=== PATIENT | female | born 1995 | race Caucasian/White ===

== ENCOUNTER 2017-04-30 06:58 | Emergency (ER) | payer OTHER, MEDICAID, SELFPAY ==
[2017-04-30 06:58] VITALS: BP 152/94; PULSE 80; RESP 16; TEMP 36.2; O2SAT 97; BMI 29.9
--- NOTE | 2017-04-30 07:25 | ED.DCSUM_ITS ---
- ER Visit Summary Date of Service: 04/30/17 Chief Complaint: [Abdominal pain] History of Present Illness: The patient is a 22 F [who presents the emergency department with abdominal pain. Started yesterday at 1 PM. Bilateral upper quadrant and epigastric. Sharp aching pain. She rates it as severe. She has had 2-3 episodes of nausea and vomiting. No diarrhea. No fevers or chills. She has no medical problems and no primary physician at this time. Urination has been normal. Last menstrual cycle was April 19. She has had a C- section in the past no other abdominal surgeries. She did drink alcohol Sunday night drinks socially. She denies tobacco use.] Physical Examination: [] WN WD NAD PERRL EOMI MMM NECK supple and nontender, no masses RRR no murmur rub or gallop, no peripheral edema, symmetric radial pulses CTAB no respiratory distress ABDOMEN is soft with mild tenderness bilateral upper quadrant worse and epigastric and left upper quadrant, normal bowel sounds, no distension, no rebound or guarding SKIN is warm and dry no rashes Alert and Oriented x3, CN II-XII in tact, no motor or sensory deficits, gait normal No lymphadenopathy Test Results: [] Emergency Department Course and Treatment: [Screening labs were unremarkable. was negative. Patient was given Phenergan and fluids. She did feel somewhat better however when she opened her eyes she got nauseated again. She is not having any vertiginous symptoms. She was given Zofran. Her symptoms resolved. She was able to tolerate p.o. On reexamination she had some mild left lower quadrant tenderness but very little abdominal pain at all. At this time I think she safely can be discharged on a short course of antacid and antiemetic. Her parents and her were given careful precautions for which to return. They will follow-up with their physician.] Treatment Plan: [] Disposition: [Discharge] Impression: [1. Abdominal pain 2. Gastritis] This note was generated with [employer] dictation software. It may contain incorrect words, spelling, and punctuation that were not noted in review of the chart prior to signing ED Disposition - Plan for ED Patient: Chief Complaint: Abd Pain Referrals: Care Physician,No Primary [Primary Care Provider] -
[2017-04-30] MEDS: 0.9% Normal Saline 1,000 ML 1000 ML IV (07:38)
[2017-04-30] MEDS: Ketorolac 30 MG/ML Syringe IV (07:38)
[2017-04-30 07:54] LABS: Mucous, Urine 0 SEEN /hpf (<or=2+)
[2017-04-30 07:56] LABS: Internal QC Validated? YES +Cl - CLEAR BKGD; Pregnancy, Urine Negative Negative
[2017-04-30 07:58] LABS: Absolute Lymphocyte Count 1.14 X10^3/ul (0.83-4.51); Absolute Neutrophil Count 8.9 X10^3/uL (2.0-7.7); Basophil# 0.03 X10^3/uL; Basophil% 0.3 % (0-1); Eosinophil# 0.03 X10^3/uL; Eosinophils% 0.3 % (0-5); Hematocrit 44.7 % (37-47); Hemoglobin 14.6 g/dl (12.0-15.0); Lymphocyte # 1.14 X10^3/ul (4.0); Lymphocyte % 10.8 % (19-41); Mean Corp Hgb Conc 32.7 g/gl (32-36); Mean Corpuscular Hgb 27.2 pg (27.0-32.0); Mean Corpuscular Volume 83.2 fL (81-99); Mean Platelet Vol. 10.8 fl (6.2-12.0); Monocyte# 0.44 X10^3/uL; Monocyte% 4.2 % (0-10); Neutrophil # 8.93 X10^3/uL (2.7-7.7); Neutrophil % 84.3 % (47-70); Platelet Count 362 K/mm3 (150-450); RBC Distribution Width CV 14.2 % (11.6-14.6); RBC Distribution Width SD 42.9 fl (35.1-43.9); Red Blood Count 5.37 M/mm3 (4.2-5.4); White Blood Count 10.6 K/mm3 (4.4-11.0)
[2017-04-30 08:03] LABS: POSITIVE COUNT NO; POSITIVE DIFFERENTIAL NO; POSITIVE MORPHOLOGY NO
[2017-04-30 08:09] LABS: Color, Urine Yellow (Yellow); Glucose, Dipstick Normal (Normal); Ketone-Dipstick Negative (Negative); Leukocyte Esterase-Dipstick 25 /ul (Negative); Nitrite-Dipstick Negative (Negative); Occult Blood-Urine 10 /ul (Negative); Protein-Dipstick Negative (Negative); Urine Bilirubin Dipstick Negative (Negative); Urine Clarity Sl. Cloudy (Clear); Urine Urobilinogen Normal (Normal)
[2017-04-30 08:11] LABS: ALB/GLOB Ratio 0.8 RATIO (0.9-2.4); AST(SGOT) 12 U/L (15-37); Alanine Aminotransfer ALT/SGPT 16 U/L (13-56); Albumin, Serum 3.6 g/dL (3.2-5.0); Alkaline Phosphatase 96 U/L (45-117); Anion Gap 7 (5-15); BUN 17 mg/dL (7-18); BUN/Creat Ratio 21.4 RATIO (10-20); Calcium,Total 8.8 mg/dL (8.5-10.1); Chloride 105 mmol/L (98-107); Creatinine, Serum 0.79 mg/dL (0.55-1.02); EST Glomerular Filtration Rate 97 mL/min (>60); Est Glom Filt Rate - Afr Amer 118 mL/min (>60); Estimated Creatinine Clearance 101.36 ml/min; Globulin 4.4 g/dL (2.2-4.2); Glucose 135 mg/dL (74-106); Lipase 98 U/L (73-393); Potassium 3.9 mmol/L (3.5-5.1); Sodium Level 137 mmol/L (136-145)
[2017-04-30 08:32] LABS: White Blood Cells 0-5 SEEN /hpf (0-5)
[2017-04-30 08:33] LABS: Bacteria RARE /hpf (None Seen); Red Blood Cells-Urine 0-5 SEEN /hpf (0-5); Squamous Epithelial Cells - UA 0-5 SEEN /hpf (5-10)
[2017-04-30] MEDS: Ondansetron 4 MG/2 ML Vial IV (08:53)
--- NOTE | 2017-04-30 09:52 | ED.DEP ---
ED Disposition - Plan for ED Patient: Chief Complaint: Abd Pain Instructions: ED Abdominal Pain Unkn Cause, ED Gastritis Prescriptions: Ondansetron [Zofran Odt] 4 mg PO Q8H PRN PRN #10 tablet PRN Reason: Nausea Omeprazole [Prilosec] 20 mg PO DAILY #7 capsule Referrals: Christina Mg MD [STAFF PHYSICIAN] - 3-5 Days
== END 2017-04-30 10:51 | disposition home or self-care (01) ==
LOC: ED 07:28
PROVIDERS: Emergency Provider Emergency Medicine
DX: K29.70 Gastritis, unspecified, without bleeding (principal)
CPT/HCPCS: 80053; 81001; 81025; 83690; 85025; 96361; 96374; 96375; 99283; J7030; A4216; J2405

== ENCOUNTER → 2018-07-11 13:52 | Outpatient (CLI) | payer MEDICAID, SELFPAY ==
[2018-07-17 12:06] LABS: Clam <0.10 kU/L (Class 0); Codfish <0.10 kU/L (Class 0); Corn <0.10 kU/L (Class 0); Egg, White <0.10 kU/L (Class 0); Milk (Cow) <0.10 kU/L (Class 0); Peanut <0.10 kU/L (Class 0); SCALLOP <0.10 kU/L (Class 0); Shrimp <0.10 kU/L (Class 0); Soybean <0.10 kU/L (Class 0); Walnut, (Food) <0.10 kU/L (Class 0); Wheat <0.10 kU/L (Class 0)
[2018-07-17 14:31] LABS: SESAME SEED <0.10 kU/L (Class 0)
[2018-07-19 06:07] LABS: Alternaria tenuis <0.10 kU/L (Class 0); Ash, White <0.10 kU/L (Class 0); Aspergillus fumigatus <0.10 kU/L (Class 0); Bermuda Grass <0.10 kU/L (Class 0); Birch <0.10 kU/L (Class 0); Black Walnut <0.10 kU/L (Class 0); Cat Hair / Dander,Stand <0.10 kU/L (Class 0); Cedar, Mountain <0.10 kU/L (Class 0); Cladosporium herbarum <0.10 kU/L (Class 0); Cockroach, American <0.10 kU/L (Class 0); Cottonwood <0.10 kU/L (Class 0); D farinae Mite <0.10 kU/L (Class 0); D pteronyssinus <0.10 kU/L (Class 0); Dog Epithelia <0.10 kU/L (Class 0); Elm, American White <0.10 kU/L (Class 0); Immunoglobulin E 32 IU/mL (6-495); Maple/Box Elder <0.10 kU/L (Class 0); Mulberry, White <0.10 kU/L (Class 0); Oak, White <0.10 kU/L (Class 0); Pecan <0.10 kU/L (Class 0); Penicillium Notatum <0.10 kU/L (Class 0); Pigweed, Rough <0.10 kU/L (Class 0); Ragweed, Short/Common <0.10 kU/L (Class 0); Russian Thistle <0.10 kU/L (Class 0); Sheep Sorrel <0.10 kU/L (Class 0); Sycamore, American <0.10 kU/L (Class 0); Timothy Grass <0.10 kU/L (Class 0)
[2018-07-19 13:15] LABS: Mouse Urine <0.10 kU/L (Class 0)
== END ==
PROVIDERS: Referring Provider Otolaryngology; Visit Provider Otolaryngology
DX: T78.40XA Allergy, unspecified, initial encounter (principal)
CPT/HCPCS: 36415; 82785; 86003

== ENCOUNTER 2024-08-10 17:38 | Emergency (ER) | payer BC, SELFPAY ==
[2024-08-10 17:39] VITALS: BP 147/83; PULSE 53; RESP 15; TEMP 37; O2SAT 100; BMI 26.4
--- NOTE | 2024-08-10 17:57 | EX.ED.DYSGE1 ---
HPI <INÉS Garland - Last Filed: 08/10/24 21:15> History of Present Illness Chief Complaint: Nausea/Vomiting/Diarrhea Narrative Narrative: Patient presenting today due to nausea and vomiting that started this morning. She reports that she went to bed yesterday and drank 5 wine coolers and smoked marijuana. She additionally reports several episodes of loose today, however, this is not abnormal for her after having her gallbladder removed. She reports burning epigastric pain with vomiting as well as pain in the back of her throat. She denies fevers, chills, hematemesis, blood in the stool, and urinary symptoms. She denies frequent marijuana or alcohol use. [facility] <INÉS Garland - Last Filed: 08/10/24 21:15> [facility] Medical History Laryngitis Acute pharyngitis, unspecified delivery delivered Home Medications ?Medication ?Instructions ?Recorded ?Last Taken ?Type aspirin 81 mg tablet,delayed 81 mg PO DAILY 12/12/21 Unknown History release (Adult Low Dose Aspirin) cephalexin 500 mg capsule 500 mg PO TID 5 days #15 caps 08/10/24 Unknown Rx escitalopram oxalate 20 mg tablet 20 mg PO DAILY 08/10/24 Unknown History ondansetron 4 mg disintegrating 4 mg PO Q8H PRN PRN Nausea #10 tabs 08/10/24 Unknown Rx tablet pantoprazole 20 mg tablet,delayed 20 mg PO DAILY 08/10/24 Unknown History release Allergy/AdvReac Type Severity Reaction Status Date / Time No Known Allergies Allergy Verified 08/10/24 17:39 Social History Smoking Status: Never smoker ROS <INÉS Garland - Last Filed: 08/10/24 21:15> ROS ED Constitutional Constitutional ED: Denies chills or fever(s) Cardiovascular Cardiovascular: Denies chest pain Respiratory/Chest Respiratory/Chest: Denies dyspnea Gastrointestinal Gastrointestinal: Reports abdominal pain, diarrhea, nausea and vomiting; Denies constipation or melena Genitourinary Genitourinary ED: Denies dysuria, hematuria or urinary urgency Integumentary Denies rash Neurologic Neurologic: Denies weakness EXAM <INÉS Garland - Last Filed: 08/10/24 21:15> Physical Exam Const Vital Signs: 08/10/24 17:39 08/10/24 19:39 08/10/24 20:53 Temperature 98.6 F 99 F 98.4 F Temperature Source Oral Oral Oral Pulse Rate 53 L 54 L 46 L Respiratory Rate 15 16 16 Blood Pressure 147/83 H 132/85 H 134/77 H Blood Pressure Mean 104 100 96 Pulse Ox 100 99 99 Oxygen Delivery Method Room Air Room Air Room Air 08/10/24 22:30 Temperature 98.1 F Temperature Source Pulse Rate 55 L Respiratory Rate 16 Blood Pressure 100/69 Blood Pressure Mean 79 Pulse Ox 95 Oxygen Delivery Method Positive well nourished, well developed and no apparent distress General Appearance ED: well developed HEENT Reports normocephalic and head/scalp atraumatic Mouth ED: Yes moist mucous membranes normal Eyes PERRL and EOMs intact bilaterally Neck full ROM and supple Chest Wall inspection of chest normal Resp normal respiratory effort and clear to auscultation bilaterally Cardio regular rate and regular rhythm GI soft to palpation, non-tender, non-distended and no masses Back/Spine normal ROM and normal to inspection Extremity normal to inspection and full ROM Neuro moves all extremities, no focal motor deficits and no sensory deficits noted Sensorium / Orientation: awake and alert Psych mental status grossly normal and thought process normal Skin no rashes or lesions noted and no wounds <Dr. Aaron Keyes DO - Last Filed: 08/10/24 22:46> Physical Exam Const Vital Signs: 08/10/24 17:39 08/10/24 19:39 08/10/24 20:53 Temperature 98.6 F 99 F 98.4 F Temperature Source Oral Oral Oral Pulse Rate 53 L 54 L 46 L Respiratory Rate 15 16 16 Blood Pressure 147/83 H 132/85 H 134/77 H Blood Pressure Mean 104 100 96 Pulse Ox 100 99 99 Oxygen Delivery Method Room Air Room Air Room Air 08/10/24 22:30 Temperature 98.1 F Temperature Source Pulse Rate 55 L Respiratory Rate 16 Blood Pressure 100/69 Blood Pressure Mean 79 Pulse Ox 95 Oxygen Delivery Method MDM <Zara Lomeli PA - Last Filed: 08/10/24 21:15> [facility] MDM Narrative Medical decision making narrative: Patient presenting today with nausea and vomiting that started this morning. She had several alcoholic beverages as well as marijuana yesterday and while tubing. She woke up this morning feeling this way. She reports burning epigastric pain with vomiting, otherwise denies having significant abdominal pain., Pepcid, her abdomen is soft and nontender, given she has a nonsurgical abdomen I do not feel abdominal imaging at this time is indicated. Patient given IV fluids, pepcid, and Zofran. On reexamination she was still nauseous and was given Phenergan. She continued to have vomiting and did admits that she does use marijuana multiple times throughout the week. Initially she told me she rarely uses this substance, I think there might be an element of cannabis hyperemesis syndrome here. She was given IV Thorazine and Benadryl and she will be reassessed. Labs obtained, CBC shows a WBC of 20.4, this is likely reactive to her vomiting, her CMP and lipase are unremarkable. UA does show urine ketones with 3+ bacteria and 5-10 WBCs, negative leukocytes, negative nitrites. She has no CVA tenderness, I do not feel that this is pyelonephritis. This will be cultured and we will treat her with antibiotics. Lab Data Attestation: I reviewed the patient's lab results. Labs: Laboratory Results - last 24 hr 08/10/24 08/10/24 18:25 19:50 WBC 20.4 H RBC 4.64 Hgb 13.9 Hct 40.4 MCV 87.1 MCH 30.0 MCHC 34.4 RDW Std Deviation 40.7 RDW Coeff of Mallorie 13.0 Plt Count 378 MPV 10.3 Immature Gran % (Auto) 0.700 Neut % (Auto) 86.1 H Lymph % (Auto) 5.8 L [place] % (Auto) 7.2 Eos % (Auto) 0.0 Baso % (Auto) 0.2 Absolute Neuts (auto) 17.6 H Absolute Lymphs (auto) 1.18 Nucleated RBC % 0 Sodium 139 Potassium 3.3 Chloride 101 Carbon Dioxide 21.6 Anion Gap 16 H BUN 8 Creatinine 0.83 Estim Creat Clear Calc 100.43 Est GFR (MDRD) Non-Af 98 BUN/Creatinine Ratio 10.0 Glucose 107 H Calcium 9.5 Total Bilirubin 0.56 AST 18 ALT 10 Alkaline Phosphatase 61 Total Protein 7.2 Albumin 4.3 Globulin 2.9 Albumin/Globulin Ratio 1.5 Lipase 17 Serum , Qual NEGATIVE Urine Color Yellow Urine Clarity Clear Urine pH 6.0 Ur Specific [place] 1.020 Urine Protein 30 H Urine Glucose (UA) Normal Urine Ketones 150 A* Urine Occult Blood 10 H Urine Nitrite Negative Urine Bilirubin 1 H Urine Urobilinogen 1 H Ur Leukocyte Esterase Negative Urine RBC 0 SEEN Urine WBC 5-10 SEEN Ur Squamous Epith Cells 0-5 SEEN Urine Bacteria 3+ Urine Mucus 4+ <Dr. Aaron Keyes, DO - Last Filed: 08/10/24 22:46> [facility] MDM Narrative Medical decision making narrative: Patient presenting today with nausea and vomiting that started this morning. She had several alcoholic beverages as well as marijuana yesterday and while tubing. She woke up this morning feeling this way. She reports burning epigastric pain with vomiting, otherwise denies having significant abdominal pain., Pepcid, her abdomen is soft and nontender, given she has a nonsurgical abdomen I do not feel abdominal imaging at this time is indicated. Patient given IV fluids, pepcid, and Zofran. On reexamination she was still nauseous and was given Phenergan. She continued to have vomiting and did admits that she does use marijuana multiple times throughout the week. Initially she told me she rarely uses this substance, I think there might be an element of cannabis hyperemesis syndrome here. She was given IV Thorazine and Benadryl and she will be reassessed. Labs obtained, CBC shows a WBC of 20.4, this is likely reactive to her vomiting, her CMP and lipase are unremarkable. UA does show urine ketones with 3+ bacteria and 5-10 WBCs, negative leukocytes, negative nitrites. She has no CVA tenderness, I do not feel that this is pyelonephritis. This will be cultured and we will treat her with antibiotics. Supervisory Physician Note Patient was seen and examined with the Advanced Practice Provider. Nursing notes and vital signs have been reviewed. Pertinent old records have been reviewed. I agree with the essential elements of the LAURA's history, physical exam, assessment, and plan. The differential diagnosis and management options were discussed with the LAURA. I participated in determining and agree with the management, procedures, final impression and disposition as documented. See changes noted by me. Please see addendum or separate note for any additional details. On reassessment after patient was given Thorazine and Benadryl, her nausea significantly improved. She was able to rest. Given that this treatment helped the patient, there is likely an element of cannabis hyperemesis syndrome. Patient updated of this. Patient stable to discharge home and she is comfortable with this. She was educated to take it easy next several days and stay on a bland diet. Follow-up with PCP. She was given prescription for Zofran as well as Keflex. She confirmed understanding of the plan. Impression: 1. Nausea, vomiting, diarrhea 2. UTI 3. Suspect component of cannabis hyperemesis syndrome Lab Data Labs: Laboratory Results - last 24 hr 08/10/24 08/10/24 18:25 19:50 WBC 20.4 H RBC 4.64 Hgb 13.9 Hct 40.4 MCV 87.1 MCH 30.0 MCHC 34.4 RDW Std Deviation 40.7 RDW Coeff of Mallorie 13.0 Plt Count 378 MPV 10.3 Immature Gran % (Auto) 0.700 Neut % (Auto) 86.1 H Lymph % (Auto) 5.8 L [place] % (Auto) 7.2 Eos % (Auto) 0.0 Baso % (Auto) 0.2 Absolute Neuts (auto) 17.6 H Absolute Lymphs (auto) 1.18 Nucleated RBC % 0 Sodium 139 Potassium 3.3 Chloride 101 Carbon Dioxide 21.6 Anion Gap 16 H BUN 8 Creatinine 0.83 Estim Creat Clear Calc 100.43 Est GFR (MDRD) Non-Af 98 BUN/Creatinine Ratio 10.0 Glucose 107 H Calcium 9.5 Total Bilirubin 0.56 AST 18 ALT 10 Alkaline Phosphatase 61 Total Protein 7.2 Albumin 4.3 Globulin 2.9 Albumin/Globulin Ratio 1.5 Lipase 17 Serum , Qual NEGATIVE Urine Color Yellow Urine Clarity Clear Urine pH 6.0 Ur Specific [place] 1.020 Urine Protein 30 H Urine Glucose (UA) Normal Urine Ketones 150 A* Urine Occult Blood 10 H Urine Nitrite Negative Urine Bilirubin 1 H Urine Urobilinogen 1 H Ur Leukocyte Esterase Negative Urine RBC 0 SEEN Urine WBC 5-10 SEEN Ur Squamous Epith Cells 0-5 SEEN Urine Bacteria 3+ Urine Mucus 4+ Discharge Plan Triage Chief Complaint: Nausea/Vomiting/Diarrhea ED Midlevel Provider: Zara Lomeli ED Provider: Aaron Keyes Dx/Rx/DC Orders Clinical Impression: Nausea & vomiting, Marijuana use, UTI (urinary tract infection) Instructions: Cannabis Hyperemesis Syndrome, Urinary Tract Infections in Women, ED Vomiting (Adult) Prescriptions: New cephalexin 500 mg capsule 500 mg PO TID 5 Days Qty: 15 0RF ondansetron 4 mg tablet,disintegrating 4 mg PO Q8H PRN PRN (Reason: Nausea) Qty: 10 0RF No Action aspirin [Adult Low Dose Aspirin] 81 mg tablet,delayed release (DR/EC) 81 mg PO DAILY pantoprazole 20 mg tablet,delayed release (DR/EC) 20 mg PO DAILY escitalopram oxalate 20 mg tablet 20 mg PO DAILY Stand Alone Forms: Work Status Form Primary Care Provider: Blessing Russo NP Referrals: Blessing Russo NP, MARGARINE CHURN OPERATOR-C [Primary Care Provider] - 5-7 Days Activity Restrictions/Additional Instructions: Return for any worsening symptoms. Follow-up with your PCP. Print Language: Surinamese Disposition Disposition: Home, Self Care Discharge Date/Time: 08/10/24 22:37
[2024-08-10] MEDS: Ondansetron 4 MG/2 ML Vial IV (18:22)
[2024-08-10] MEDS: 0.9% Normal Saline (1000mL) 1,000 ML 999 ML IV ×2 (18:22→19:41)
[2024-08-10 18:32] LABS: Absolute Lymphocyte Count 1.18 X10^3/uL (0.83-4.51); Absolute Neutrophil Count 17.6 X10^3/uL (2.0-7.7); Basophil# 0.04 X10^3/uL; Basophil% 0.2 % (0-1); Eosinophil# 0.01 X10^3/uL; Hematocrit 40.4 % (37-47); Hemoglobin 13.9 g/dL (12.0-15.0); Lymphocyte # 1.18 X10^3/ul (0.83-4.51); Lymphocyte % 5.8 % (19-41); Mean Corp Hgb Conc 34.4 g/dL (32-36); Mean Corpuscular Volume 87.1 fL (81-99); Mean Platelet Vol. 10.3 fl (6.2-12.0); Monocyte# 1.46 X10^3/uL; Monocyte% 7.2 % (0-10); NRBC Flagged by Analyzer 0 % (0-5); Neutrophil # 17.55 X10^3/uL (2.7-7.7); Neutrophil % 86.1 % (47-70); Platelet Count 378 K/mm3 (150-450); RBC Distribution Width SD 40.7 fl (35.1-43.9); Red Blood Count 4.64 M/mm3 (4.2-5.4); White Blood Count 20.4 K/mm3 (4.4-11.0)
[2024-08-10 18:50] LABS: ALB/GLOB Ratio 1.5 RATIO (0.9-2.4); AST(SGOT) 18 U/L (<=31); Alanine Aminotransfer ALT/SGPT 10 U/L (<=34); Albumin, Serum 4.3 g/dL (3.5-5.0); Alkaline Phosphatase 61 U/L (35-104); Anion Gap 16 (5-15); BUN 8 mg/dL (4-19); Calcium,Total 9.5 mg/dL (7.6-11.0); Carbon Dioxide 21.6 mmol/L (21.0-32.0); Chloride 101 mmol/L (98-108); Creatinine, Serum 0.83 mg/dL (0.70-1.20); EST Glomerular Filtration Rate 98 (>60); Estimated Creatinine Clearance 100.43 ml/min (50-250); Globulin 2.9 g/dL (2.2-4.2); Glucose 107 mg/dL (70-99); Lipase 17 U/L (13-75); Potassium 3.3 mmol/L (3.3-5.1); Protein, Total 7.2 g/dL (5.9-8.4); Sodium Level 139 mmol/L (133-145); Total Bilirubin 0.56 mg/dL (0.00-1.30)
[2024-08-10 18:57] LABS: Internal QC Validated? YES +Cl - CLEAR BKGD; Pregnancy, Serum, hCG Quali. NEGATIVE Negative
[2024-08-10 19:39] VITALS: BP 132/85; PULSE 54; RESP 16; TEMP 37.2; O2SAT 99
[2024-08-10] MEDS: proMETHazine 25 MG/ML Syringe IM (19:41)
[2024-08-10 20:04] LABS: Red Blood Cells-Urine 0 SEEN /hpf (0-5)
[2024-08-10 20:12] LABS: Color, Urine Yellow (Yellow); Glucose, Dipstick Normal (Normal); Leukocyte Esterase-Dipstick Negative /ul (Negative); Nitrite-Dipstick Negative (Negative); Occult Blood-Urine 10 /ul (Negative); Protein-Dipstick 30 mg/dl (Negative); Urine Clarity Clear (Clear); Urine Urobilinogen 1 mg/dl (Normal)
[2024-08-10 20:35] LABS: Urine Bilirubin Dipstick 1 mg/dL (Negative)
[2024-08-10 20:37] LABS: Ketone-Dipstick 150 mg/dl (Negative)
[2024-08-10 20:38] LABS: Bacteria 3+ /hpf (None Seen); Squamous Epithelial Cells - UA 0-5 SEEN /hpf (5-10); White Blood Cells 5-10 SEEN /hpf (0-5)
[2024-08-10 20:39] LABS: Mucous, Urine 4+ /hpf (<or=2+)
[2024-08-10 20:53] VITALS: BP 134/77; PULSE 46; RESP 16; TEMP 36.9; O2SAT 99
[2024-08-10] MEDS: Famotidine 200 MG/20 ML MDV 20 MG in 0.9% Normal Saline (Pres. free 8 ML 300 MG IV (21:00)
[2024-08-10] MEDS: Ceftriaxone 1 GM/50 ML BAG IV (21:05)
[2024-08-10] MEDS: DiphenhydrAMINE 25 MG, ChlorproMAZINE IM 25 MG in 0.9% Normal Saline (100mL Bag) 100 ML 203 MG IV (21:40)
[2024-08-10 22:30] VITALS: BP 100/69; PULSE 55; RESP 16; TEMP 36.7; O2SAT 95
== END 2024-08-10 22:37 | disposition home or self-care (01) ==
PROVIDERS: Physician Assistant; Emergency Provider Surgery; PCP Nurse Practitioner Family; Referring Provider Surgery; Visit Provider Surgery
DX: R11.2 Nausea with vomiting, unspecified (principal); R19.7 Diarrhea, unspecified; N39.0 Urinary tract infection, site not specified; F12.90 Cannabis use, unspecified, uncomplicated; Z79.82 Long term (current) use of aspirin; Z79.899 Other long term (current) drug therapy
CPT/HCPCS: 80053; 81001; 83690; 84703; 85025; 87086; 87088; 87651; 96365; 96367; 96372; 96375; 96376; 99283; A4216; J2405